=== PATIENT | male | born 1955 | race Caucasian/White ===

== ENCOUNTER → 2017-01-10 | Outpatient (CLI) | payer OTHER ==
[~2017-01-10] MED LIST: KEFLEX 500MG.500 MG PO; PREDNISONE 20MG20 MG PO
--- NOTE | 2017-01-10 20:37 | RADIOLOGY REPORT PS360 ---
US RUQ-(ABD LTD)1ORGAN/QUAD/FU HISTORY: RUQ PAIN Patient Age: 61 years: Male Ordering Physician: Patito Zurita MD TECHNIQUE: Ultrasound right upper quadrant COMPARISON :None FINDINGS Pancreas unremarkable. Liver. Unremarkable No focal lesions. No biliary ductal dilatation Gallbladder. No gallstones evident. Trace sludge. Generous gallbladder but within normal limits. 7.5 cm length. No wall thickening Common duct appears normal diameter less than 4 mm and hilum of liver. Right kidney appears satisfactory 11 seem in length with no hydronephrosis nor mass. IMPRESSION: Gallbladder. Trace sludge. No gallstones. . o/w Unremarkable RUQ ultrasound.
== END ==
LOC: RAD 09:14
DX: R10.11 Right upper quadrant pain (principal)

== ENCOUNTER 2017-01-21 02:15 | Inpatient (IN) | payer OTHER ==
[~2017-01-21] VITALS: Ht 180.3 cm; Wt 78.7 kg
[2017-01-21] VITALS (7 sets, daily range): BP systolic 109–145; BP diastolic 68–87
[2017-01-21] MEDS ORDERED: ASPIRIN 81MG TA81 MG PO (02:27)
[2017-01-21] MEDS ORDERED: LIPITOR10 MG PO (02:28)
--- OUTSIDE RECORDS SUMMARY | 2017-01-21 02:31 | External Medical Summary Rpt ---
Author Author FAINA Vega, [employer] Organization [employer] Address Unknown Phone Unavailable
--- OUTSIDE RECORDS SUMMARY | 2017-01-21 02:31 | External Medical Summary Rpt | CCD ---
Author Author [employer] Organization [employer] Address Unknown Phone Unavailable Purpose Continuity of Care Document - through 2016
--- OUTSIDE RECORDS SUMMARY | 2017-01-21 02:31 | External Medical Summary Rpt | CCD ---
Author Author , FAINA EISENBERG Address Unknown Phone [email or web address] Care Team Providers Care Supervisor Tumblers Name Role Phone Monty Bravo MD, Unavailable Unavailable Monty Bravo MD Purpose Continuity of Care Document - 10-21-2012 through 2016 Problems Code Diagnosis DOS Provider Status 683 683 ACUTE 10-22-2012 [facility] Allergies, Adverse Reactions, Alerts Type Allergy to substance Adverse Reaction to Substance Substance Reaction Severity NO KNOWN ALLERGIES Unknown Unknown Medications Na ND Rx Da Fi Fi Am Da Di Ph RX Ph St me C No te ll ll ou ys ag ar # ys at rm s nt no ma ic us Or Da si cy ia de te s n re d CE 00 08 0 No FT 78 -0 RI 19 3- Lo AX 32 20 ng ON 89 13 er E 5 1 Ac GM ti ve AL LI 63 08 0 No DO 32 -0 CA 30 3- Lo IN 20 20 ng E 11 13 er HC 0 L Ac 1% ti ve AL De 00 08 0 No xa 51 -0 me 74 3- Lo th 90 20 ng as 12 13 er on 5 e Ac 4M ti G/ ve Ml Sd v Vital Signs 10-21-2012 23:57 Name Value Interpretat Reference Comment ion Range BP 80 mm[Hg] Diastolic BP Systolic 139 mm[Hg] Heart 58 /min Rate/Pulse O2% 98 % Respiratory 16 /min Rate 10-21-2012 23:36 Name Value Interpretat Reference Comment ion Range BP 90 mm[Hg] Diastolic BP Systolic 140 mm[Hg] Heart 82 /min Rate/Pulse O2% 93 % Respiratory 20 /min Rate Encounters Encounter Start End Date Code Location Performer Type Date Emergency MANNY Bravo MD (ER) 3 22:55 3 [facility]
--- OUTSIDE RECORDS SUMMARY | 2017-01-21 02:31 | External Medical Summary Rpt | CCD ---
Demographics Preferred Language Maltese Marital Status Unknown Lutheran Affiliation Unknown Race Unknown Ethnic Group Unknown Author Author , FAINA EISENBERG Address Unknown Phone Immunization No patient found.
--- OUTSIDE RECORDS SUMMARY | 2017-01-21 02:31 | External Medical Summary Rpt | CCD ---
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
--- OUTSIDE RECORDS SUMMARY | 2017-01-21 02:31 | External Medical Summary Rpt | CCD ---
Demographics Preferred Language Estonian Marital Status Unknown Jewish Affiliation Unknown Race Unknown Ethnic Group Unknown Author Author , FAINA EISENBERG Address Unknown Phone Immunization No patient found.
[2017-01-21 03:10] LABS: LYMPH % 10.5 % (10-50)
[2017-01-21 03:24] LABS: URINE BLOOD NEGATIVE (NEG)
[2017-01-21 03:31] LABS: URINE BILIRUBIN - DIPSTICK 1+ (NEG)
--- NOTE | 2017-01-21 03:54 | Emergency Room Report ---
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 Y Clinical Suspician of Infection? N Mental Status: 1 - Regular (Normal Baseline) Sepsis Risk:Low Sepsis Risk Have you (or family members/close friends) recently traveled outside the [place]? N If Yes, where/when: Have you had exposure to infectious disease within the past month? N TB? Other? Specify: Source patient, RN notes reviewed, family, old records Exam Limitations no limitations Comment pt with upper abd pain with nausea and vomiting with hida scan today pending - Cardiac Chest Pain Chest pain indicative of cardiac No Timing/Duration this evening Severity moderate ALLERGIES Coded Allergies: NO KNOWN ALLERGIES (01/21/17) Home Medications Active Scripts Prednisone (Prednisone 20MG) 20 MG PO BID #10 TAB Prov: 10/21/12 Reported Medications ASPIRIN (Aspirin) 81 MG PO DAILY Atorvastatin Calcium (Lipitor 10MG) 10 MG PO QHS History Medical History General CAD? Yes Angina: No PR: No Hypertension? No Hyperlipidemia? Yes CHF? No DVT? No PE? No COPD? No Asthma? No Anemia? No GERD? No Gastric ulcers? No GI Bleed? No Hernia? No Thyroid Problems? No Hypothyroidism? No CVA? No Seizures? No Diabetes? No Renal Insuffiency? No End Stage Renal Disease? No UTI? No Stones? No BPH? No GB Disease: No Nephritic Syndrome? No Asplenia? No Hepatitis? No Sickle Cell Disease? No Arthritis? No Migraines? No Cataracts? No Glaucoma? No MRSA? No HIV? No TB? No Anxiety? No Depression? No Cancer? 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 Respiratory denies cough, denies shortness of breath, denies wheezing Cardiovascular denies chest pain, denies palpitations, denies syncope Gastrointestinal see HPI, abdominal pain, denies diarrhea, nausea, vomiting Genitourinary denies: dysuria, frequency, hesitancy, hematuria. Musculoskeletal denies back pain, denies joint swelling, denies neck pain Skin denies rash Psychiatric/Neurological denies headache, denies seizure Physical Exam Vital Signs Vital Signs Date Time Temp Pulse Resp B/P Pulse O2 O2 Flow FiO2 Ox Delivery Rate 01/21 0355 97.8 57 20 113/72 93 01/21 0220 97.8 65 20 130/87 98 - WBC >12,000 or <4,000 or 10% bands? 2 or more SIRS Criteria Met? B/P:113/72 MAP:101 Creatinine >2.0? UA output<0.5ml/kg/hr for 2 hrs? Platelet count >100,000? Lactate >2.0mmol/1? INR >1.2 or PTT > than 60 sec? Evidence of Organ Dysfunction? Provider documented clinical suspician of infection? N Sepsis Criteria Count: 1 Sepsis Risk: Low Sepsis Risk General Appearance no apparent distress Eye Exam - bilateral eye PERRL, bilateral eye EOMI Ear, Nose, Throat normal ENT inspection Neck supple Respiratory Status No: respiratory distress. 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 No Results/Orders Laboratory Tests 01/21/17 0320: Urine Color YELLOW, Urine Appearance SL CLOUDY, Urine pH 6.0, Ur Specific [place] >= 1.030, Urine Protein 1+ H, Urine Ketones 2+ H, Urine Blood NEGATIVE , Urine Nitrate NEGATIVE, Urine Bilirubin 1+ H, Urine Urobilinogen 1.0, Ur Leukocyte Esterase NEGATIVE, Urine RBC OCC, Urine WBC 3-5, Ur Squamous Epith Cells NONE, Amorphous Sediment 1+, Urine Mucus 3+, Urine Glucose NEGATIVE 01/21/17 0241: Lipase 97 01/21/17 0241: Lactic Acid 1.1 01/21/17 0241: Sodium 137, Potassium 3.8, Chloride 102, Carbon Dioxide 23, BUN 27 H, Creatinine 0.9, Estimated Creat Clear 95, Estimated GFR (MDRD) 86, Glucose 129 H, Calcium 9.2, Total Bilirubin 0.9, AST 19, ALT 27, Alkaline Phosphatase 76, Total Protein 7.9, Albumin 3.9, Globulin 4.0 H, Albumin/Globulin Ratio 1.0 L, WBC 9.6, RBC 5.27, Hgb 16.0, Hct 46.1, MCV 87.4, RDW 12.6, Plt Count 223, MPV 7.5, Gran % 81.3 H, Gran # 7.8, Lymphocytes % 10.5, Monocytes % 7.9, Eosinophils % 0.1, Basophils % 0.2, Lymphocytes # 1.0, Monocytes # 0.8, Eosinophils # 0.0, Basophils # 0.0, PUBS MCHC 34.7, MCH 30.3 Current Medication Orders Sig/Blade Start time Last Medication Dose Route Stop Time Status Admin Sodium Chloride 1,000 ML .STK-MED ONE 01/22 232 DC IV Ondansetron HCl 0 .STK-MED ONE 01/21 231 DC .ROUTE Ondansetron HCl 4 MG ONCE ONE 01/21 230 DC IV 01/21 231 Sodium Chloride 10 ML PRN PRN 01/21 230 AC IV 01/22 229 Sodium Chloride 1,000 ML .Q1H1M 01/21 230 DC IV 01/21 033 Sodium Chloride 10 ML PRN PRN 01/21 230 AC IV 01/22 229 Orders Procedure Date/time Status DIET-NOTHING BY MOUTH 01/21 B Active LIPASE 01/[address] ABD & PELVIS W/O CONTRAST 01/[address] ABD/PELVIS REQ 01/21 230 Complete IV SALINE LOCK 01/21 230 Active CULTURE, BLOOD 01/21 230 Active URINALYSIS/COMPLETE 01/21 230 Complete LACTIC ACID 11/03 0230 Complete CBC WITH AUTO DIFF 01/21 023 Complete CHEM 12 PROFILE 01/21 023 Complete XRAY/CT/US XRAY/CT/US CT abdomen, pelvis CT interpretation by discussed w/radiologist Time results known: 035 CT Results abnormal (sbo) Departure Departure Time of Disposition 040 Disposition DC Home or Self Care(routine) Clinical Impression Primary Impression: SBO (small bowel obstruction) Condition STABLE Referrals Patito Zurita MD (Family) Patient Instructions DI for Vomiting -- Adult Additional Instructions see pcp today and recheck if needed Discharge Counseling Counseled pt/family regarding diagnosis, test results, follow up needs ED Critical Care Critical Care No Comments pt declined admit at [id number]
--- OUTSIDE RECORDS SUMMARY | 2017-01-21 04:22 | External Medical Summary Rpt | CCD ---
Author Author , FAINA EISENBERG Address Unknown Phone [email or web address] Care Team Providers Care Clinical Trial Leader Name Role Phone Monty Bravo MD, Unavailable Unavailable Monty Bravo MD Purpose Continuity of Care Document - 10-21-2012 through 2016 Problems Code Diagnosis DOS Provider Status 683 683 ACUTE 10-22-2012 [facility] Allergies, Adverse Reactions, Alerts Type [...] MANNY Bravo MD (ER) 3 22:55 3 [facility]
--- OUTSIDE RECORDS SUMMARY | 2017-01-21 04:22 | External Medical Summary Rpt | CCD ---
Author Author , FAINA EISENBERG Address Unknown Phone [email or web address] Care Team Providers Care Tabulating Supervisor Name Role Phone Monty Bravo MD, Unavailable Unavailable Monty Bravo MD Purpose Continuity of Care Document - 10-21-2012 through 2016 Problems Code Diagnosis DOS Provider Status 683 683 ACUTE 10-22-2012 [facility] Allergies, Adverse Reactions, Alerts Type [...] MANNY Bravo MD (ER) 3 22:55 3 [facility]
--- OUTSIDE RECORDS SUMMARY | 2017-01-21 04:23 | External Medical Summary Rpt | CCD ---
Demographics Preferred Language Urdu Marital Status Unknown Pentecostal Affiliation Unknown Race Unknown Ethnic Group Unknown Author Author , KEVIN EISENBERG Address Unknown Phone Immunization Unable to retrieve immunization data due to connection failure with Immunization Registry. Please try again later.
--- OUTSIDE RECORDS SUMMARY | 2017-01-21 04:23 | External Medical Summary Rpt | CCD ---
Demographics Preferred Language Yakut Marital Status Unknown Protestant Affiliation Unknown Race Unknown Ethnic Group Unknown Author Author , KEVIN EISENBERG Address Unknown Phone Immunization Unable to retrieve immunization data due to connection failure with Immunization Registry. Please try again later.
--- OUTSIDE RECORDS SUMMARY | 2017-01-21 04:23 | External Medical Summary Rpt ---
Author Author FAINA Gary, [employer] Organization [employer] Address Unknown Phone Unavailable Results Lipase [Enzymatic activity/volume] in Serum or Plasma Observa Value Referen Units Interpr Notes Date tion ce etation Range Lipase 73 - 393 U/L Normal No Jan 21 [Enzymati informati 2016 2:41 c on in AM activity/ source volume] data in Serum or Plasma Lactate [Moles/volume] in Blood Observa Value Referen Units Interpr Notes Date tion ce etation Range Lactate 0.4 - 2.0 mmol/L Normal No Jan 21 [Moles/vo informati 2016 2:41 lume] in on in AM Blood source data CBC W Auto Differential panel in Blood Observa Value Referen Units Interpr Notes Date ti ce etation Range Basophils 0 - 0.2 K/MM3 Normal No Jan 21 inform2016 2:41 [#/volume on in AM ] in source Blood by data Automated count Basophils 0.1 - 2.0 % Normal No Jan 21 informati 2016 2:41 leukocyte on in AM s in source Blood by data Automated count Eosinophi 0.0 - 0.4 K/mm3 Normal No Jan 21 ls informati 2016 2:41 [#/volume on in AM ] in source Blood by data Automated count Eosinophi 0.1 - % Normal Jan 21 ls/100 12.0 informati 2016 2:41 leukocyte on in AM s in source Blood by data Automated count Granulocy 1.3 - 8.0 K/mm3 Normal No Jan 21 ki informati 2016 2:41 [#/volume on in AM ] in source Blood by data Automated count Granulocy 37.0 - % High No Jan 21 ki/100 80.0 informati 2016 2:41 leukocyte on in AM s in source Blood by data Automated count Hematocri 42.0 - % Normal No Jan 21 t [Volume 52.0 informati 2016 2:41 on in AM Fraction] source of Blood data Hemoglobi 14.1 - g/dL Normal No Nov 3 n 18.0 informati 2017 2:41 [Mass/vol on in AM ume] in source Blood data Lymphocyt 0.7 - 4.5 K/mm3 Normal No Jan 3 es informati 2016 2:41 [#/volume on in AM ] in source Unspecifi data ed specimen by Automated count Lymphocyt 10 - 50 % Normal No Jan 3 es informati 2016 2:41 [#/volume on in AM ] in source Unspecifi data ed specimen by Automated count Erythrocy 27 - 31.2 pg Normal No Jan 3 te mean informati 2017 2:41 corpuscul on in AM ar source hemoglobi data n [Entitic mass] Erythrocy 31.8 - g/dl Normal No Jan 3 te mean 35.4 informati 2016 2:41 corpuscul on in AM ar source hemoglobi data n concentra tion [Mass/vol ume] by Automated count Erythrocy 82.2 - fl Normal No Jan 3 te mean 97.8 informati 2016 2:41 corpuscul on in AM ar volume source [Entitic data volume] by Automated count Monocytes 0.1 - 1.0 K/mm3 Normal No Jan 3 informati 2016 2:41 [#/volume on in AM ] in source Blood by data Automated count Monocytes 1.7 - 9.3 % Normal No Jan 3 /100 informati 2017 2:41 leukocyte on in AM s in source Blood by data Automated count Platelet 7.4 - fl Normal No Jan 3 mean 10.4 informati 2016 2:41 volume on in AM [Entitic source volume] data in Blood by Automated count Platelets 142 - 424 K/mm3 Normal No Jan 3 informati 2016 2:41 [#/volume on in AM ] in source Blood data Erythrocy 4.6 - 6.2 M/mm3 Normal No Jan 3 ki informati 2017 2:41 [#/volume on in AM ] in source Amniotic data fluid Erythrocy 11.5 - % Normal No Jan 3 te 17.5 informati 2016 2:41 distribut on in AM ion width source [Entitic data volume] by Automated count Leukocyte 4.8 - K/MM3 Normal No Jan 3 s 10.8 informati 2016 2:41 [#/volume on in AM ] in source Blood data Comprehensive metabolic 2000 panel in Serum or Plasma Observa Value Referen Units Interpr Notes Date tion ce etation Range Albumin/G 1.1 - 1.8 No Low No Nov 3 lobulin informati informati 2017 2:41 [Mass on in on in AM ratio] in source source Serum or data data Plasma Albumin 3.4 - 5.0 gm/dL Normal No Jan 3 [Mass/vol informati 2016 2:41 ume] in on in AM Serum or source Plasma data Alkaline 46 - 116 U/L Normal No Jan 3 phosphata informati 2016 2:41 se on in AM [Enzymati source c data activity/ volume] in Serum or Plasma Bilirubin 0.2 - 1.0 mg/dL Normal No Jan 21 .total informati 2016 2:41 [Mass/vol on in AM ume] in source Serum or data Plasma Urea 7 - 18 mg/dL High No Jan 21 nitrogen informati 2016 2:41 [Mass/vol on in AM ume] in source Serum or data Plasma Calcium 8.5 - mg/dL Normal No Jan 21 [Mass/vol 10.1 informati 2016 2:41 ume] in on in AM Serum or source Plasma data Chloride 98 - 107 mmoL/L Normal No Jan 21 [Moles/vo informati 2016 2:41 lume] in on in AM Serum or source Plasma data Carbon 21.0 - mmoL/L Normal No Jan 21 dioxide, 32.0 informati 2017 2:41 total on in AM [Moles/vo source lume] in data Serum or Plasma Creatinin 0.70 - mg/dL Normal No Jan 3 e 1.30 informati 2016 2:41 [Mass/vol on in AM ume] in source Serum or data Plasma Creatinin 50 - 200 ML/MIN Normal No Jan 3 e renal informati 2017 2:41 clearance on in AM source predicted data by Cockcroft -Gault formula Estimated >60 ML/MIN No REFERENCE Nov 3 informati RANGE: 2017 2:41 glomerula on in >60 AM r source ML/MIN/1. filtratio data 73 SQUARE n rate METERSIf (GF this patient is -A merican, then multiply theresult by 1.210. Globulin 1.3 - 3.2 gm/dL High No Jan 21 [Mass/vol informati 2016 2:41 ume] in on in AM Serum source data Glucose 74 - 106 mg/dL High No Jan 21 [Mass/vol informati 2016 2:41 ume] in on in AM Serum or source Plasma data Potassium 3.5 - 5.1 mmoL/L Normal No Jan 21 informati 2016 2:41 [Moles/vo on in AM lume] in source Serum or data Plasma Sodium 136 - 145 mmoL/L Normal No Jan 21 [Moles/vo informati 2016 2:41 lume] in on in AM Serum or source Plasma data Aspartate 15 - 37 U/L Normal No Jan 21 informati 2016 2:41 aminotran on in AM sferase source [Enzymati data c activity/ volume] in Serum or Plasma Alanine 12 - 78 U/L Normal No Jan 21 aminotran informati 2016 2:41 sferase on in AM [Enzymati source c data activity/ volume] in Serum or Plasma Protein 6.4 - 8.2 gm/dL Normal No Jan 21 [Mass/vol informati 2016 2:41 ume] in on in AM Serum or source Plasma data
--- NOTE | 2017-01-21 06:23 | RADIOLOGY REPORT PS360 ---
CT ABD PELVIS W/O CONTRAST CLINICAL INDICATION: Nausea and vomiting with lower abdominal pain C/O ABD PAIN ORDERING PHYSICIAN: Patito Zurita MD PATIENT AGE: 61 years COMPARISON: None TECHNIQUE: Axial images obtained with sagittal and coronal reformats. PROCEDURE: Oral Contrast: None IV Contrast: None . FINDINGS: The lung bases are clear. Gallbladder is somewhat distended measuring up to 4.7 cm in transverse dimension. No radio opaque stones. The spleen, pancreas, and adrenal glands are unremarkable. No hydronephrosis. No obstructing renal or ureteral calculi. There is some minimal cortical medullary calcification in the upper pole the right kidney. Prior appendectomy. There is diverticulosis of the descending and sigmoid colon but no evidence of diverticulitis. Mildly dilated fluid-filled loops of small bowel in the proximal and mid small bowel. Distal small bowel is decompressed. No free air or abnormal fluid collections. IMPRESSION: 1. The findings are consistent with partial small bowel obstruction in the distal small bowel. 2. Diverticulosis
--- NOTE | 2017-01-21 07:24 | PHARMACY CLINIC NOTE ---
Patient Demographics Patient Demographics Admission date: 01/21/17 Date: 01/21/17 Time: 0724 Allergies Coded Allergies: No Known Allergies (01/21/17) HEIGHT- FT: 5 IN: 11.00 K.699 VTE General Information Labs: Laboratory Tests 01/21 0241 Hematology Hgb (14.1 - 18.0 g/dL) 16.0 Hct (42.0 - 52.0 %) 46.1 Plt Count (142 - 424 K/mm3) 223 Disclaimer The following section includes nursing documentation that has been pulled in for pharmacy review. Patient's VTE score: 1 Patient's VTE Risk: VERY LOW RISK Clinical trial participant? No VTE prophylaxis NQF [id number] VTE prophylaxis ordered? Yes Type of prophylaxis/treatment: NO at 0724
[2017-01-21] MEDS ORDERED: LIPITOR20 M1 PO (08:23)
--- NOTE | 2017-01-21 08:27 | HISTORY AND PHYSICAL REPORT ---
History and Physical ([facility]) Date of admission: 01/21/17 Chief complaint: Abdominal pain, nausea, vomiting History: History of Present Illness: Mr. Whalen is a 61-year-old male who began vomiting on Tuesday evening around 2 AM. He states he vomited forcefully numerous times. Yesterday morning the vomiting had subsided and he tried to eat and drink, but then by 8 PM last night he began vomiting again, therefore he presented to the emergency room. A CT scan was done showing a partial small bowel obstruction, therefore he was admitted for further evaluation and treatment. He states he has been having good bowel movements the past few days. His pain has improved since last night and he has had no more vomiting. Past Medical History: Medical History: CAD? Yes Angina: No VA: No Hypertension? No Hyperlipidemia? Yes CHF? No DVT? No PE? No COPD? No Asthma? No Anemia? No GERD? No Gastric ulcers? No GI Bleed? No Hernia? No Thyroid Problems? No Hypothyroidism? No CVA? No Seizures? No Diabetes? No Renal Insuffiency? No UTI? No Stones? No BPH? No GB Disease: No Nephritic Syndrome? No Asplenia? No Hepatitis? No Sickle Cell Disease? No Arthritis? No Migraines? No Cataracts? No Glaucoma? No MRSA? No HIV? No TB? No Anxiety? No Depression? No Cancer? No Surgical history: Previous Surgery?Y APPY CABG X 4 C-SCOPE EGD Allergies: Coded Allergies: No Known Allergies (01/21/17) Family History: Family history: Postive for: CAD, HTN, cancer, hyperlipidemia, stroke. Negative for: DM. Social History: Smoking Hx Tobacco: No Smoker: Former Smoker Type: Cigarettes Packs/day: < 1 Pack Are you exposed to second hand No Alcohol: Alcohol: No Hx of Drug Use: Drug Use? No Review of Systems: Constitutional Positive for: fatigue, lethargy, malaise, weak. ENT No: nasal congestion, sore throat. Cardiovascular No: chest pain, edema, palpitations. Respiratory No: shortness of air, productive cough (sputum), wheezing. GI Positive for: abdominal pain, nausea, vomitting. No: diarrhea, melena. (male) No: frequency, hematuria. Neurological Positive for: weakness. No: dizziness, headache, syncope. Musculoskeletal No: extremity pain, joint pain, myalgias. Physical Exam: Vital signs: 1ST Vital Signs Result Date Time Pulse Ox 98 01/22 220 B/P 130/87 01/22 220 Temp 97.8 01/22 220 Pulse 65 01/22 220 Resp 20 01/22 220 O2 Delivery ROOM AIR 01/22 456 Exam: General appearance: alert, awake, no acute distress Eyes: PERRLA ENT: nose normal, pharynx normal, tympanic membranes normal, dry mucous membranes Neck: non-tender, full range of motion, supple Cardiovascular: regular rate & rhythm Respiratory: clear to auscultation ABD: non-distended, normal bowel sounds, no rebound, soft, no guarding, mild ttp in the lower abdomen Extremities: no peripheral edema Musculoskeletal: equal muscle strength, motor intact, sensation intact Skin: normal color Neuro: normal mood/affect, oriented, speech clear Lab data: Labs: Laboratory Tests 01/21/17 0320: Urine Color YELLOW, Urine Appearance SL CLOUDY, Urine pH 6.0, Ur Specific [place] >= 1.030, Urine Protein 1+ H, Urine Ketones 2+ H, Urine Blood NEGATIVE , Urine Nitrate NEGATIVE, Urine Bilirubin 1+ H, Urine Urobilinogen 1.0, Ur Leukocyte Esterase NEGATIVE, Urine RBC OCC, Urine WBC 3-5, Ur Squamous Epith Cells NONE, Amorphous Sediment 1+, Urine Mucus 3+, Urine Glucose NEGATIVE 01/21/17 0241: Lipase 97 01/21/17 0241: Lactic Acid 1.1 01/21/17 0241: Sodium 137, Potassium 3.8, Chloride 102, Carbon Dioxide 23, BUN 27 H, Creatinine 0.9, Estimated Creat Clear 95, Estimated GFR (MDRD) 86, Glucose 129 H, Calcium 9.2, Total Bilirubin 0.9, AST 19, ALT 27, Alkaline Phosphatase 76, Total Protein 7.9, Albumin 3.9, Globulin 4.0 H, Albumin/Globulin Ratio 1.0 L, WBC 9.6, RBC 5.27, Hgb 16.0, Hct 46.1, MCV 87.4, RDW 12.6, Plt Count 223, MPV 7.5, Gran % 81.3 H, Gran # 7.8, Lymphocytes % 10.5, Monocytes % 7.9, Eosinophils % 0.1, Basophils % 0.2, Lymphocytes # 1.0, Monocytes # 0.8, Eosinophils # 0.0, Basophils # 0.0, PUBS MCHC 34.7, MCH 30.3 Microbiology 01/21 241 BLOOD: Anaerobic Blood Culture - RECD 01/21 241 BLOOD: Aerobic Blood Culture - RECD 01/21 241 BLOOD: Anaerobic Blood Culture - RECD 01/21 241 BLOOD: Aerobic Blood Culture - RECD Radiology results: Results: CT abd/pelvis 1. The findings are consistent with partial small bowel obstruction in the distal small bowel. 2. Diverticulosis Diagnosis(es): 1. SBO (small bowel obstruction) 2. Nausea & vomiting 3. Abdominal pain Plan: Patient seems to have improved slightly this morning. He is scheduled for a HIDA scan today. Will see if he can still have this done. Will discuss further treatment with Dr. Zurita. ([place]os[place] King) History: History of Present Illness: Further to above history, he was seen in the office 2-3 weeks ago with symptoms more suspicious for gall bladder disease. An US was negative for stones but showed sludge and was to have an outpt HIDA scan today. Past Medical History: Medications: Reported Medications Atorvastatin Calcium (Lipitor) 20 MG PO QHS Omeprazole (Omeprazole 40MG) 40 MG PO DAILY #30 CAP ASPIRIN (Aspirin) 81 MG PO DAILY Diagnosis(es): 1. Partial small bowel obstruction 2. Nausea & vomiting 3. Abdominal pain Plan: Continue with IV fluids and bowel rest. Proceed with HIDA today. (Patito Zurita MD) at 0826 at 1730
[2017-01-21] MEDS ORDERED: OMEPRAZOLE40 MG PO (09:25)
--- NOTE | 2017-01-21 15:50 | RADIOLOGY REPORT PS360 ---
[facility] ([facility]) HISTORY: Right upper quadrant pain with nausea and vomiting Nausea, vomiting, sludge on US ORDERING PHYSICIAN: Patito Zurita MD PATIENT AGE: 61 years COMPARISON: Gallbladder ultrasound 01/10/2017 DOSE: 7.74 mCi technetium Choletec Fatty meal/ensure used for gallbladder contraction. Pain was reported with fatty meal FINDINGS: Homogeneous activity is present within the hepatic parenchyma. Activity is present in the gallbladder by 15 minutes. Activity is present in the small bowel by 20 minutes. The gallbladder ejection fraction is calculated to be 0% The patient reported pain or other symptoms after the fatty meal ingestion . IMPRESSION: 1. No evidence of common or cystic duct obstruction. 2. Abnormal gallbladder ejection fraction of 0%. 3. Pain elicited with fatty meal with low gallbladder ejection fraction which may be seen with gallbladder dyskinesia
--- NOTE | 2017-01-21 17:58 | ACUTE CARE PROGRESS NOTE (QUA) ---
Progress Notes Subjective Date 01/21/17 Time 1754 Note Has persisted with some bloating and cramping today. As had some loose stools. No nausea or vomiting. Objective Findings Last VS-Temp:97.9 B/P:129/75 Pulse:57 Resp:18 SaO2:98 ROOM AIR Last weight lbs:173 oz:8 K.699 Method:Bed Scales HIDA scan showed the following IMPRESSION: 1. No evidence of common or cystic duct obstruction. 2. Abnormal gallbladder ejection fraction of 0%. 3. Pain elicited with fatty meal with low gallbladder ejection fraction which may be seen with gallbladder dyskinesia Assessment/Plan Problem List 1. Partial small bowel obstruction 2. Nonfunctioning gallbladder Plan: Clear liquids tonight. Repeat abdominal films in AM. Surgical consult. This inpt stay is expected to cross 2 MNs from start of care Yes at 1754
[2017-01-22 04:20] VITALS: BP 100/70
[2017-01-22 07:01] LABS: LYMPH # 1.4 K/mm3 (0.7-4.5); LYMPH % 24.9 % (10-50)
[2017-01-22 08:05] VITALS: BP 113/65
[2017-01-22 08:33] VITALS: BP 113/65
--- NOTE | 2017-01-22 09:47 | ACUTE CARE PROGRESS NOTE (QUA) ---
Progress Notes Subjective Date 01/22/17 Time 0944 Note Rested well through the night. Only mild cramping this AM. Has continued with loose stools. No nausea of vomting Objective Findings Laboratory Tests 01/22/17 0614: Sodium 140, Potassium 3.7, Chloride 107, Carbon Dioxide 25, BUN 21 H, Creatinine 0.7 L, Estimated Creat Clear 125, Estimated GFR (MDRD) 115, Glucose 90, Calcium 8.4 L, WBC 5.6, RBC 4.33 L, Hgb 13.0 L, Hct 39.2 L, MCV 90.6, RDW 12.6, Plt Count 168, MPV 7.7, Gran % 61.1, Gran # 3.4, Lymphocytes % 24.9, Monocytes % 12.9 H, Eosinophils % 0.9, Basophils % 0.3, Lymphocytes # 1.4, Monocytes # 0.7, Eosinophils # 0.1, Basophils # 0.0, PUBS MCHC 32.8, MCH 29.7 Last VS-Temp:97.9 B/P:113/65 Pulse:53 Resp:20 SaO2:97 ROOM AIR Last weight lbs:173 oz:8 K.699 Method:Bed Scales Exam General appearance: alert, no acute distress Cardiovascular: regular rate & rhythm Respiratory: clear to auscultation ABD: non-distended, soft, no tenderness Assessment/Plan Problem List 1. Partial small bowel obstruction 2. Nonfunctioning gallbladder Plan: Abdominal xrays pending. Surgical consult. This inpt stay is expected to cross 2 MNs from start of care Yes at 0947
--- NOTE | 2017-01-22 09:59 | RADIOLOGY REPORT PS360 ---
ABD ACUTE(MUL VIEWS) HISTORY: f/u partial SBO abdominal pain nausea vomiting Patient Age: 61 years: Male Ordering Physician: Patito Zurita MD TECHNIQUE: Upright chest with flat and upright views abdomen COMPARISON :Yesterday CT abdomen and pelvis FINDINGS : Upright Chest:. Lungs clear no active disease. Sternotomy CABG. Heart normal size. No free air beneath diaphragm. Small tiny calcified granulomas lung rivera bilateral noted Flat and upright views abdomen: Dilated small bowel loops with air-fluid level. Minimal gas throughout small bowel. Also some liquid stool at right colon... Dilated loops of small bowel measuring 4.6 cm diameter. These more prominent small bowel loops most evident at the left upper abdomen findings are most compatible with a partial small bowel obstruction. 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 Reviewing yesterday's CT there seems to be rather gradual transition from dilated to nondilated small bowel rather than a discrete focal area o obstruction and f transition. No significant calcifications nor additional significant findings abdomen. IMPRESSION--- partial small bowel obstruction pattern persists, but with notable Improvement since yesterday's CT Less extensive small bowel gas & dilatation today.. Slight Additional Gas liquid stool without bowel. . findings suggest Improving small bowel obstruction
--- NOTE | 2017-01-22 10:09 | CONSULT NOTE ---
Standard Demographics Patient Demo Date of Consultation: 01/22/17 Referring Provider: Krishna Zurita MD Reason for Consultation: ABDOMINAL PAIN PRIMARY DIAGNOSIS: SBO Allergies: Coded Allergies: No Known Allergies (01/21/17) History of Present Illness Chief Complaint: Abdominal pain and vomiting History of Present Illness: Patient is a 61-year-old white male. For a couple of weeks he has had some postprandial RIGHT flank pain. He had undergone outpatient gallbladder ultrasound for possible gallbladder disease on 01/10/17 which was unremarkable. 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 This was followed by cramping lower abdominal pain mostly in the RIGHT lower quadrant and mid lower abdomen. He was seen and evaluated in the emergency department and had a CT scan of the abdomen and pelvis without any contrast whatsoever. This revealed findings consistent with distal small bowel obstruction. Patient was admitted for inpatient management early yesterday morning. He had already been scheduled for an outpatient HIDA scan to be done yesterday. This proceeded as an inpatient. He underwent a HIDA scan without CCK. With fatty meal this revealed good uptake of tracer but nonfunctioning gallbladder. Yesterday evening surgical consultation was ordered. At this point patient feels well. He has no pain and no vomiting. He has moved his bowels. Past Medical History Reports: CAD. Surgical History Previous Surgery?Y APPY CABG X 4 Allergies Coded Allergies: No Known Allergies (01/21/17) Medications: Reported Medications Atorvastatin Calcium (Lipitor) 20 MG PO QHS Omeprazole (Omeprazole 40MG) 40 MG PO DAILY #30 CAP ASPIRIN (Aspirin) 81 MG PO DAILY Smoking Hx Tobacco: No Smoker: Former Smoker Type: Cigarettes Packs/day: < 1 Pack Are you/the child exposed to second-hand smoke: No Alcohol Alcohol: No Hx of Drug Use Drug Use? No Review of Systems Constitutional No: chills. Skin No: abrasions. Immune/allergy No: anaphalaxis. Eyes No: vision loss. ENT No: hearing loss. Respiratory No: shortness of air. Cardiovascular No: chest pain. GI Positive for: abdomen, vomitting. (male) No: hematuria. Musculoskeletal No: extremity swelling. Heme No: bruising. Endocrine No: cold intolerance. Neurological No: change in LOC. Physical Exam Exam General appearance no acute distress, alert Respiratory clear to auscultation Cardiovascular regular rate and rhythm Abdomen non-tender, soft Plan Plan: It is unclear as to the etiology of the patient's current symptoms. It is very possible that he has had 2 mutually exclusive issues. He may have some degree of gallbladder disease and this may be an explanation for his symptoms couple of weeks ago. However, I'm doubtful that this led to his significant vomiting and cramping lower abdominal pain over the past couple of days. Gallbladder disease also would not explain the findings on his noncontrast CT scan. I would be rather skeptical of the results of an inpatient HIDA scan without CCK as well. Possible resolving mechanical small bowel obstruction is a possibility or enterocolitis. Since he shown significant improvement in his pain and vomiting and has shown good bowel function I will obtain a CT scan with actual contrast this afternoon. at 1001
--- NOTE | 2017-01-22 14:44 | RADIOLOGY REPORT PS360 ---
CT ABD PELVIS W/ CONTRAST HISTORY: RIGHT SIDED ABOMINAL PAINright-sided abdominal pain nausea vomiting diarrhea yesterday. Prior appendectomy. Patient Age: 61 years: Male Ordering Physician: Patito Zurita MD .COMPARISON :Yesterday's CT abdomen pelvis with no contrast PROCEDURE: Helical CT scanning with a 75 cc [id number] as well as enteric oral contrast utilized. Sagittal coronal reconstructions on CT workstation FINDINGS: The lung bases are clear. FINDINGS:. The small bowel obstruction pattern again noted. Similar to yesterday.. There seems to be slightly more fluid & less gas within small bowel on today's study , with slight decreased small bowel dilatation,. However appears to be slight additional wall thickening & hint inflammation appearance in adjacent fat throughout these thickened loops of dilated small bowel.-Suggest enteritis. Is there history of inflammatory bowel disease?. On Yesterday CT small bowel loops measure up to 4.1 cm cm. Today similar loops are slightly less distended to 3.2- 3.5 cm. LUQ,.. Slightly fewer & slightly less distended bowel loops today . On close inspection note rather gradual progressive transition caliber of small bowel which begins I believe at midline on axial image-58, 59,/& on coronal image 15-14. . Proximal to this point there is gradual progressive dilatation of small bowel, which becomes most pronounced throughout the proximal small bowel/jejunum.Some of this progressive transition may reflect variable areas of small wall thickening Terminal Ileum & more distal distal small bowel becomes normal in caliber.. Including terminal ileum. . Terminal ileum with borderline wall thickening but overall no significant inflammation here. Appendix is been removed. The technologist did not supply the time of oral contrast but Oral contrast moved very well through the small bowel including thickened & inflamed appearing segments at mid small bowel. Oral contrast has progressed through entire small bowel as well as entire colon to the rectum. Large Bowel: Liquid stool suggesting diarrhea, with scatteredAir-fluid levels throughout large bowel. . diverticulosis most pronounced & extensive sigmoid colon, with scattered diverticuli at descending colon. There is. Wall thickening of the sigmoid. Most likely reflects the underlying diverticulosis but cannot exclude associated colitis here.. No focal diverticulitis evident.. . interval development minimal fluid the cul-de-sac.-Abnormal for a male. & Most evident to the right Lower pelvis. This is become more evident since yesterday. Aorta unremarkable. Generous caliber SMA and SMV but both appears to have normal perfusion on this late postcontrast study. & unremarkable. Celiac artery unremarkable GALLBLADDER further distended Measuring 10 cm in length x 5.1 cm AP. There appears to be gallbladder wall thickening and I would question some subtle inflammatory changes recommend gallbladder ultrasound correlation with appropriate lab. Upper normal wall thickness at the pylorus and duodenal bulb also noted on axial image 33, just immediately adjacent to the gallbladder.. No free fluid along the gutters The liver appears within normal limits. Upper normal biliary radicles.. Common duct normal diameter. No calculi seen along its course. . Spleen appears satisfactory. Adrenals & kidneys unremarkable. Ureters unremarkable. Urinary bladder unremarkable... IMPRESSION: 1. Partial Small Bowel Obstruction, likely with Enteritis yielding areas of additional wall thickening today .... Since yesterday's CT, slightly less small bowel distention;, however note increased fluid & increased inflammation at the remaining dilated loops of proximal small bowel... Some Loops appear to have notable additional wall thickening as well as perhaps subtle inflammation adjacent fat. ... Suspect the associated enteritis and wall thickening. Continued to the proximal bowel dilatation & partial obstruction.. Distal small bowel appears normal caliber. Terminal ileum upper normal wall thickness ..Any history of inflammatory bowel disease?. If not then suspect infectious enteritis. SMA unremarkable 2.. Abnormal GALLBLADDER.: progressive GB dilatation with suggestion mild diffuse wall thickening gallbladder & subtle pericholecystic inflammatory changes particularly about medial, & anterior aspect GB towards duodenum.-.. Abnormal HIDA scan yesterday noted -Just medial to this inflamed appearing GB, note generous wall thickening descending duodenum & bulb. Correlation required.. Correlation required. 3... MInimal fluid in cul-de-sac has developed since yesterday CT,, reflecting the above inflammation small bowel or possibly gallbladder inflammation features 4. Prominent Diverticulosis sigmoid colon and less evident descending colon.. No acute diverticulitis evident
[2017-01-22 15:46] VITALS: BP 122/67
[2017-01-22 19:10] VITALS: BP 122/67
[2017-01-22 19:38] VITALS: BP 127/78
[2017-01-23 04:41] VITALS: BP 115/66
[2017-01-23 06:09] LABS: HEMOGLOBIN 12.7 g/dL (14.1-18.0); LYMPH # 1.7 K/mm3 (0.7-4.5); LYMPH % 32.7 % (10-50)
[2017-01-23 07:40] VITALS: BP 129/72
--- NOTE | 2017-01-23 08:35 | SURGEON PROGRESS NOTE ---
Subjective data Subjective data: MUNA GARCIA is a 61 M .Patient denies complaint of nausea and vomitting.He reports his last pain level as 0 on a 0-10 pain scale. Patient feels quite well at this point. Tolerating copious amounts of full liquids without difficulty. Bowels moving regularly, loose. No pain. Assessment findings Assessment Exam General appearance: normal appearance, alert ABD: soft, no tenderness Patient plan Plan: Advance diet Additional data: Patient likely has two issues (chronic gallbladder disease and acute enteritis). Since his enteritis has seemingly shown significant improvement may be able to discharge with outpatient followup for possible gallbladder. at 0835
--- NOTE | 2017-01-23 08:50 | ACUTE CARE PROGRESS NOTE (QUA) ---
Progress Notes Subjective Date 01/23/17 Time 0849 Note He rested well through the night with no complaints of abdominal pain, nausea, or vomiting. He is tolerating full liquid diet. He states that even the right upper quadrant discomfort has resolved. Surgical consult noted. Objective Findings Laboratory Tests 01/23/17 0545: Sodium 139, Potassium 3.8, Chloride 106, Carbon Dioxide 26, BUN 12, Creatinine 0.7 L, Estimated Creat Clear 125, Estimated GFR (MDRD) 115, Glucose 104, Calcium 8.6, Total Bilirubin 0.4, AST 16, ALT 16, Alkaline Phosphatase 61, Total Protein 6.1 L, Albumin 2.9 L, Globulin 3.2, Albumin/Globulin Ratio 0.9 L, WBC 5.2, RBC 4.29 L, Hgb 12.7 L, Hct 38.2 L, MCV 89.1, RDW 12.4, Plt Count 185, MPV 7.5, Gran % 55.1, Gran # 2.9, Lymphocytes % 32.7, Monocytes % 10.4 H, Eosinophils % 1.4, Basophils % 0.4, Lymphocytes # 1.7, Monocytes # 0.6, Eosinophils # 0.1, Basophils # 0.0, PUBS MCHC 33.1, MCH 29.5 Last VS-Temp:98.1 B/P:129/72 Pulse:51 Resp:20 SaO2:99 ROOM AIR Last weight lbs:173 oz:8 K.699 Method:Bed Scales Exam General appearance: alert, no acute distress Cardiovascular: regular rate & rhythm Respiratory: clear to auscultation ABD: non-distended, normal bowel sounds, soft, no tenderness Assessment/Plan Problem List 1. Partial small bowel obstruction Assessment/Plan Improved 2. Viral enteritis Status: Resolved 3. Nonfunctioning gallbladder Patient condition Improving Plan: After discussion with Dr. Reno, we'll plan for discharge today. He will follow a strict low-fat diet. He will follow up with Dr. Reno as an outpatient to arrange elective cholecystectomy. This inpt stay is expected to cross 2 MNs from start of care Yes at 1130
[2017-01-23 09:37] VITALS: BP 129/72
--- NOTE | 2017-01-25 10:38 | DISCHARGE SUMMARY STANDARD ---
Discharge Summary (FCA2) Date of admission: 01/21/17 Date of discharge: 01/23/17 Problem List: 1. Partial small bowel obstruction 2. Viral enteritis 3. Nonfunctioning gallbladder History of present illness: Mr. Whalen was a 61-year-old male who began with vomiting two days prior to admission. He described vomiting forcefully numerous times. On the morning prior to admission, the vomiting had subsided and he had tried to eat and drink, but then by 8 PM that night he began vomiting again, therefore he presented to the emergency room. A CT scan without contrast was done showing a partial small bowel obstruction, therefore he was admitted for further evaluation and treatment. Exam on admission: General appearance: alert, awake, no acute distress Eyes: PERRLA ENT: nose normal, pharynx normal, tympanic membranes normal, dry mucous membranes Neck: non-tender, full range of motion, supple Cardiovascular: regular rate & rhythm Respiratory: clear to auscultation ABD: non-distended, normal bowel sounds, no rebound, soft, no guarding, mild ttp in the lower abdomen Extremities: no peripheral edema Musculoskeletal: equal muscle strength, motor intact, sensation intact Skin: normal color Neuro: normal mood/affect, oriented, speech clear Hospital Course: By the morning after admission, his pain had improved and he had no more vomiting. He stated he had been having good bowel movements the past few days. He was tolerating clear liquids without difficulty. He was seen by surgery in consultation and abdominal CT with contrast was ordered which showed partial small bowel obstruction likely with enteritis and abnormal gallbladder. Inpatient HIDA scan showed a non-functioning gallbladder without evidence of ductal obstruction. The following day, the patient was felt to be improved. He was tolerating full liquids without complaint. After discussion with surgery, he was felt to be stable for discharge with instruction for strict low-fat diet and outpatient follow up to arrange elective cholecystectomy. Discharge medications: Continue taking these medications: ASPIRIN (Aspirin) 81 MG TAB.CHEW 81 MILLIGRAM ORAL DAILY Atorvastatin Calcium (Lipitor) 20 MG TABLET 20 MILLIGRAM ORAL AT BEDTIME NIGHTLY Omeprazole (Omeprazole 40MG) 40 MG CAPSULE. 40 MILLIGRAM ORAL DAILY Qty = 30 Comments: take 1 capsule by mouth once daily - SIG Obtained From [facility] Disposition: Follow up with: Patito Zurita MD Follow up: 7-10 days Activity: Cont Current activity Diet: Low Fat/Low Cholesterol Discharge to: HOME Agency needed? N at 1038
== END 2017-01-23 09:35 | disposition home or self-care (01) | DRG 390 ==
LOC: ER 02:15 → 2ND 04:19 → ER 04:19 → 2ND 04:45
PROVIDERS: Emergency Medicine; Family Medicine
DX: K56.609 Unspecified intestinal obstruction, unspecified as to partial versus complete obstruction (principal); A08.4 Viral intestinal infection, unspecified; K82.9 Disease of gallbladder, unspecified; Z95.1 Presence of aortocoronary bypass graft; I25.10 Atherosclerotic heart disease of native coronary artery without angina pectoris
CPT/HCPCS: A9502; A9537; Q9967